=== PATIENT | female | born 1955 | race Caucasian/White ===

== ENCOUNTER → 2017-01-28 | Outpatient (CLI) | payer OTHER | LOC: BMCIMAGING 13:34 | PROVIDERS: ATTEND Nurse Practitioner Adult Health | DX: Z12.31 Encounter for screening mammogram for malignant neoplasm of breast (principal) | CPT/HCPCS: G0202 ==

== ENCOUNTER → 2017-05-01 | Outpatient (CLI) | payer OTHER | LOC: BMCIMAGING 13:12 | PROVIDERS: ATTEND Obstetrics & Gynecology | DX: R10.2 Pelvic and perineal pain (principal); D25.9 Leiomyoma of uterus, unspecified; N83.201 Unspecified ovarian cyst, right side; Z80.41 Family history of malignant neoplasm of ovary; N94.9 Unspecified condition associated with female genital organs and menstrual cycle ==

== ENCOUNTER → 2018-02-10 | Outpatient (CLI) | payer OTHER | LOC: BMCIMAGING 07:26 | PROVIDERS: ATTEND Obstetrics & Gynecology | DX: N83.291 Other ovarian cyst, right side (principal); D25.1 Intramural leiomyoma of uterus; N94.89 Other specified conditions associated with female genital organs and menstrual cycle; Z78.0 Asymptomatic menopausal state ==

== ENCOUNTER → 2018-06-11 | Outpatient (CLI) | payer OTHER | LOC: BMCIMAGING 13:44 | PROVIDERS: ATTEND Internal Medicine | DX: Z12.31 Encounter for screening mammogram for malignant neoplasm of breast (principal); Z13.820 Encounter for screening for osteoporosis; M85.89 Other specified disorders of bone density and structure, multiple sites; Z78.0 Asymptomatic menopausal state; Z79.890 Hormone replacement therapy ==

== ENCOUNTER 2018-08-25 12:41 | Emergency (ER) | payer OTHER ==
[2018-08-25] MEDS ORDERED: fentaNYL 100 MCG/2 ML INJ IVP ONE (13:08)
--- NOTE | 2018-08-25 13:10 | EDPHY ---
H & P Stated Complaint[facility] Time Seen by Provider: 08/25/18 13:00 HPI/ROS: CHIEF COMPLAINT: Right knee pain HISTORY OF PRESENT ILLNESS: Patient is a 62-year-old female who tripped and fell into a kneeling position on her right knee. She is unable to straighten her knee without significant pain. Ambulance brought her to the ER. She has a very minor abrasion under other knee and no other injuries. Severity: Moderate Modifying factors: None REVIEW OF SYSTEMS: Constitutional: denies: chills, fever, recent illness, recent injury EENTM: denies: blurred vision, double vision, nose congestion Respiratory: denies: cough, shortness of breath Cardiac: denies: chest pain, irregular heart rate, lightheadedness, palpitations Gastrointestinal/Abdominal: denies: abdominal pain, diarrhea, nausea, vomiting, blood streaked stools Genitourinary: denies: dysuria, frequency, hematuria, pain Musculoskeletal: See HPI Skin: denies: lesions, rash, jaundice, bruising Neurological: denies: headache, numbness, paresthesia, tingling, dizziness, weakness Hematologic/Lymphatic: denies: blood clots, easy bleeding, easy bruising Immunologic/allergic: denies: HIV/AIDS, transplant 10 systems reviewed and negative except as noted EXAM: GENERAL: Well-appearing, well-nourished and in no acute distress. HEAD: Atraumatic, normocephalic. EYES: Pupils equal round and reactive to light, extraocular movements intact, sclera anicteric, conjunctiva are normal. ENT: TMs normal, nares patent, oropharynx clear without exudates. Moist mucous membranes. NECK: Normal range of motion, supple without lymphadenopathy or JVD. LUNGS: Breath sounds clear to auscultation bilaterally and equal. No wheezes rales or rhonchi. HEART: Regular rate and rhythm without murmurs, rubs or gallops. ABDOMEN: Soft, nontender, normoactive bowel sounds. No guarding, no rebound. No masses appreciated. BACK: No CVA tenderness, no spinal tenderness, step-offs or deformities EXTREMITIES: Right knee and flexed position of comfort. Minor abrasion to both knees. High-riding patella on the right. Inability to straight leg on her own. Normal pulses and sensation distally. NEUROLOGICAL: Cranial nerves II through XII grossly intact. Normal speech, normal gait. 5/5 strength, normal movement in all extremities, normal sensation , normal reflexes PSYCH: Normal mood, normal affect. SKIN: Abrasions on both knees. No open fracture. Source: Patient Exam Limitations: No limitations - Personal History Current Tetanus Diphtheria and Acellular Pertussis (TDAP): Unsure - Medical/Surgical History Hx Asthma: No Hx Chronic Respiratory Disease: No Hx Diabetes: No Hx Cardiac Disease: No Hx Renal Disease: No Hx Cirrhosis: No Hx Alcoholism: No Hx HIV/AIDS: No Hx Splenectomy or Spleen Trauma: No Other PMH: hypothyroid, MS - Family History Significant Family History: No pertinent family hx - Social History Smoking Status: Never smoked Alcohol Use: Sober Drug Use: None Constitutional: Initial Vital Signs Temperature (C) 36.8 C 08/25/18 12:46 Heart Rate 90 08/25/18 12:46 Respiratory Rate 18 08/25/18 12:46 Blood Pressure 135/54 H 08/25/18 12:46 O2 Sat (%) 98 08/25/18 12:46 O2 Delivery Mode Room Air Allergies/Adverse Reactions: No Known Allergies Allergy (Unverified 08/25/18 12:46) Home Medications: Medication Instructions Recorded Synthroid 08/25/18 Medical Decision Making - Diagnostics Imaging Results: Imaging Impressions Knee X-Ray 08/25/18 12:50 Impression: Displaced comminuted transverse fracture through the inferior pole of the patella. Imaging: Discussed imaging studies w/ call center support consultant Radiologist ED Course/Re-evaluation: Patient has a transverse patellar fracture with high-riding patella and inability to straighten her leg. Will place her in a straight leg brace with the assistance of pain medication today and have her follow up with Orthopedics for possible surgery. Have paged Dr. Elena. 1:[address] Elena and with the patient. She will follow up with his office tomorrow for surgical planning. She has been successfully placed in a straight leg knee brace and will be given crutches. She declines prescription pain medication. We discussed indications for returning. Differential Diagnosis: Partial list of the Differential diagnosis considered include but were not limited to; patella fracture, patellar dislocation, abrasions and although unlikely based on the history and physical exam, I also considered plateau fracture, vascular injury. I discussed these differential diagnoses and the plan with the patient as well as the usual and expected course. The patient understands that the diagnosis is provisional and that in medicine we are not always correct and that further workup is often warranted. Usual and customary warnings were given. All of the patient's questions were answered. The patient was instructed to return to the emergency department should the symptoms at all worsen or return, otherwise to followup with the physician as we discussed. - Data Points Medications Given: Discontinued Medications Fentanyl (Sublimaze) 100 mcg IVP EDNOW ONE Stop: 08/25/18 13:09 Last Admin: 08/25/18 13:15 Dose: 100 mcg Departure - Departure Disposition: Home, Routine, Self-Care Clinical Impression: Closed transverse fracture of right patella Qualifiers: Encounter type: initial encounter Fracture alignment: displaced Qualified Code( s): S82.031A - Displaced transverse fracture of right patella, initial encounter for closed fracture Condition: Fair Instructions: Patellar Fracture (ED) Referrals: Patient,NotPresent [Unknown] - As per Instructions Chapis Elena MD [Medical Doctor] - 1 day without fail
[2018-08-25 14:03] VITALS: BP 128/64
== END 2018-08-25 14:02 | disposition home or self-care (01) ==
LOC: EDUNIT#
DX: S82.031A Displaced transverse fracture of right patella, initial encounter for closed fracture (principal); G35 Multiple sclerosis; W19.XXXA Unspecified fall, initial encounter
CPT/HCPCS: 96374; J3010; L1830

== ENCOUNTER 2018-08-29 15:46 | Emergency (ER) | payer OTHER ==
[2018-08-29 16:03] VITALS: BP 119/38
--- NOTE | 2018-08-29 18:39 | EDPHY ---
H & P Stated Complaint: R leg swelling and pain s/p patella repair 08/28 Time Seen by Provider: 08/29/18 16:49 HPI/ROS: CHIEF COMPLAINT: Right leg swelling and pain HISTORY OF PRESENT ILLNESS: 62-year-old female presents with right leg swelling and pain. She sustained a patellar fracture 3 days ago and had operative repair yesterday. Gradually increasing pain and swelling of the right knee and right calf today. The pain is moderate. No alleviating or aggravating factors. She has felt somewhat short of breath since surgery, but no chest pain. No other associated symptoms. REVIEW OF SYSTEMS: complete 10 point ROS reviewed and is negative except for the noted elements in the HPI - Personal History Current Tetanus/Diphtheria Vaccine: Unsure Current Tetanus Diphtheria and Acellular Pertussis (TDAP): Unsure - Medical/Surgical History Hx Asthma: No Hx Chronic Respiratory Disease: No Hx Diabetes: No Hx Cardiac Disease: No Hx Renal Disease: No Hx Cirrhosis: No Hx Alcoholism: No Hx HIV/AIDS: No Hx Splenectomy or Spleen Trauma: No Other PMH: hypothyroid, MS, Rt patella repair, MVP, - Social History Smoking Status: Never smoked Alcohol Use: Sober Drug Use: None - Physical Exam Exam: General Appearance: Alert, pleasant Eyes: Pupils equal and round, no conjunctival pallor or injection ENT, Mouth: Mucous membranes moist Neck: Normal inspection Respiratory: Normal respiratory rate, Lungs are clear to auscultation Cardiovascular: Regular rate and rhythm Gastrointestinal: Abdomen is soft and nontender Neurological: A&O, nonfocal, normal gait Skin: Warm and dry, no rash Extremities: Right lower extremity-vertical incision over the anterior aspect of the knee, without surrounding erythema or warmth; diffuse knee and calf swelling, right calf tenderness Psychiatric: Mood and affect normal Constitutional: Initial Vital Signs Temperature (C) 37.2 C 08/29/18 16:01 Heart Rate 71 08/29/18 16:01 Respiratory Rate 16 08/29/18 16:01 Blood Pressure 119/38 L 08/29/18 16:01 O2 Sat (%) 99 08/29/18 16:01 O2 Delivery Mode Room Air Allergies/Adverse Reactions: No Known Allergies Allergy (Unverified 08/29/18 15:59) Home Medications: Medication Instructions Recorded Synthroid 08/25/18 Aspirin 08/29/18 Colace 08/29/18 Ibuprofen 08/29/18 Henniker 5-325 Tablet 08/29/18 Ondansetron 08/29/18 Oxycodone HCl 08/29/18 Rivaroxaban [Xarelto 15mg (*)] 15 mg PO BID #41 tab 08/29/18 Medical Decision Making - Diagnostics Imaging Results: Extremity Venous Study 08/29/18 16:46 Impression: Positive deep venous thrombosis in the right popliteal vein and calf veins. Findings and recommendations discussed with Emergency Department physician, REBEKAH BELLE at 18:28 hour, 08/29/2018. Final report concurs with initial preliminary interpretation. Imaging: Discussed imaging studies w/ call center nurse Radiologist ED Course/Re-evaluation: This patient presents with a right lower extremity DVT. I do not think that she has a PE; O2 sat 99% RA and normal VS. Risks and benefits of anticoagulation discussed with the patient and she clearly understands and accepts the risks. Xarelto 15 mg orally given. Discussion with Dr. Elena's PA, Geraldine Benitez. Will follow up in the office. Pt will d/c NSAIDS and ASA. Differential Diagnosis: Differential diagnosis includes though it is not limited to fracture, dislocation, tendon disruption, neurovascular compromise. - Data Points Laboratory Results: Laboratory Results 08/29/18 19:03 08/29/18 19:03 Medications Given: Discontinued Medications Rivaroxaban (Xarelto) 15 mg PO EDNOW ONE Stop: 08/29/18 18:41 Last Admin: 08/29/18 19:02 Dose: 15 mg Departure - Departure Disposition: Home, Routine, Self-Care Clinical Impression: DVT, popliteal, acute Qualifiers: Laterality: right Qualified Code(s): I82.431 - Acute embolism and thrombosis of right popliteal vein Condition: Good Instructions: Rivaroxaban (By mouth), Deep Vein Thrombosis (ED) Additional Instructions: You have a blood clot in the right leg. I have prescribed Xarelto. You will take Xarelto twice a day for 3 weeks and then once a day for 3 months. Stop taking ibuprofen and aspirin. Return for worsening symptoms or any concerns. Referrals: Radha Ndiaye MD [[facility] [place] Primary Care Provider] - As per Instructions Chapis Elena MD [Medical Doctor] - As per Instructions (Call to make an appointment.) RAMIREZ,JAMIE [Primary Care Provider] - As per Instructions Prescriptions: Rivaroxaban [Xarelto 15mg (*)] 15 mg PO BID #41 tab
[2018-08-29] MEDS ORDERED: RIVAROXABAN 15 MG TAB PO ONE (18:40)
[2018-08-29 19:22] LABS: PLATELET COUNT 211 10^3/uL (150-400)
== END 2018-08-29 19:43 | disposition home or self-care (01) ==
DX: I82.431 Acute embolism and thrombosis of right popliteal vein (principal)

== ENCOUNTER → 2018-11-27 | Outpatient (CLI) | payer OTHER | LOC: FIMAGING 09:07 | PROVIDERS: ATTEND Internal Medicine | DX: Z09 Encounter for follow-up examination after completed treatment for conditions other than malignant neoplasm (principal); Z86.718 Personal history of other venous thrombosis and embolism ==